=== PATIENT | male | born 1940 | race Caucasian/White ===

== ENCOUNTER 2020-02-23 11:44 | Inpatient (IN) ==
[2020-02-23 13:29] LABS: Albumin 3.9 g/dL (3.2-5.2); Albumin/Globulin Ratio 1.1 (1-3); BUN/Creatinine Ratio 22.3 (8-20); C Reactive Protein 54.96 mg/L (<8.01); Calcium 9.5 mg/dL (8.6-10.3); EGFR African American 44.3 (>60); EGFR Non-African American 36.6 (>60); Globulin 3.6 g/dL (2-4); Potassium 4.9 mmol/L (3.5-5.0); Total Bilirubin 0.3 mg/dL (0.2-1.0); Total Protein 7.5 g/dL (6.4-8.9)
[2020-02-23 13:38] LABS: ABS Lymphocytes 0.9 10^3/ul (1.0-4.8); ABS Monocytes 1.1 10^3/ul (0-0.8); Eosinophil % 0.5 %; Hematocrit 33 % (42-52); Hemoglobin 10.7 g/dL (14.0-18.0); Mean Corpuscular HGB Conc 33 g/dL (31-36); Mean Corpuscular Hemoglobin 25 pg (27-31); Mean Corpuscular Volume 76 fL (80-94); Mean Platelet Volume 7.4 fL (7.4-10.4); Nucleated Red Blood Cells % 0.1; Platelet Count 341 10^3/uL (150-450); Red Blood Count 4.28 10^6 /uL (4.18-5.48); Red Cell Distribution Width 19 % (10-15); White Blood Count 8.8 10^3/uL (3.5-10.8)
[2020-02-23] MEDS ORDERED: Iodixanol (CONTRAST) 320 MG/ML 100 ML SDV IV ONE (14:08)
[2020-02-23] MEDS ORDERED: Morphine 4 MG/ML VIAL (1 ml) IV ONE (14:42)
[2020-02-23] MEDS ORDERED: Ondansetron 4 mg VIAL 2 MG/ML 2 ml VIAL IV ONE (14:42)
[2020-02-23] MEDS ORDERED: NS 0.9% 1000 ml BAG 1,000 ML IV ONE (14:42)
[2020-02-23] MEDS ORDERED: NS 0.9% 1000 ml BAG 1,000 ML IV SCH ×2 (15:45→16:45)
[2020-02-23] MEDS ORDERED: Ondansetron 4 mg VIAL 2 MG/ML 2 ml VIAL IV PRN (16:39)
[2020-02-23] MEDS ORDERED: Dextrose 50% Syringe 50 ml 25 GM/50 ML SYRINGE IV PUSH PRN (17:17)
[2020-02-23] MEDS: Insulin LISPRO 100 units/ml(*) SUBCUT SCH (18:29)
[2020-02-23] MEDS: Enoxaparin 40 MG/0.4 ML SYR(*) SUBCUT SCH (19:11)
[2020-02-23] MEDS: CEFAZOLIN 1 GM IVPB SCH (19:31)
[2020-02-23] MEDS ORDERED: ceFAZolin 2 GM PREMIX in ORs 2 GM/50 ML BAG IVPB SCH (21:00)
[2020-02-23] MEDS ORDERED: D5W 1/2 NS 1000 ml BAG 1,000 ML IV SCH (21:00)
[2020-02-23 21:20] LABS: Urine Appearance Clear; Urine Bilirubin Negative (Negative); Urine Blood Negative (Negative); Urine Color Straw; Urine Glucose Negative (Negative); Urine Ketones Negative (Negative); Urine Nitrite Negative (Negative); Urine Protein Negative (Negative); Urine Specific Gravity 1.025 (1.010-1.030); Urine Urobilinogen Negative (Negative)
[2020-02-24] MEDS: Insulin LISPRO 100 units/ml(*) SUBCUT SCH ×4 (02:14→17:04)
[2020-02-24] MEDS: CEFAZOLIN 1 GM IVPB SCH ×2 (06:16→18:57)
[2020-02-24 06:49] LABS: Anion Gap 6 mmol/L (2-11); Blood Urea Nitrogen 29 mg/dL (6-24); CO2 Carbon Dioxide 25 mmol/L (22-32); Chloride 105 mmol/L (101-111); EGFR African American 56.5 (>60); EGFR Non-African American 46.7 (>60); Glucose 104 mg/dL (70-100); Potassium 3.8 mmol/L (3.5-5.0); Sodium 136 mmol/L (135-145)
[2020-02-24] MEDS ORDERED: Benzocaine/Menthol LOZ MT PRN (11:37)
[2020-02-24] MEDS ORDERED: fentaNYL 100 mcg/2 ml 50 MCG/ML VIAL ONE (14:01)
[2020-02-24] MEDS ORDERED: Midazolam 10 mg/10 ml VIAL 1 mg/ml 10 ml VIAL (10 mg) ONE (14:01)
[2020-02-24] MEDS: Enoxaparin 40 MG/0.4 ML SYR(*) SUBCUT SCH (18:57)
[2020-02-25] MEDS: CEFAZOLIN 1 GM IVPB SCH ×2 (06:01→18:00)
[2020-02-25] MEDS: Insulin LISPRO 100 units/ml(*) SUBCUT SCH ×3 (07:51→16:22)
[2020-02-25 12:06] LABS: % Iron Saturation 6 % (15-55); Iron 24 ug/dL (50-212); Total Iron Binding Capacity 413 mcg/dL (250-450); Transferrin 295 mg/dL (203-362)
[2020-02-25] MEDS: Pantoprazole VIAL 40 MG VIAL IV SCH (12:10)
[2020-02-25 12:25] LABS: Corrected Retic Count 1.1 % (0.5-1.5); Hematocrit for Retic CNT 28 % (42-52); Immature Retic Fraction 0.42; RBC Retic Count 3.64 10^6/uL (4.18-5.48)
[2020-02-25] MEDS: Enoxaparin 40 MG/0.4 ML SYR(*) SUBCUT SCH (18:00)
[2020-02-26] MEDS: CEFAZOLIN 1 GM IVPB SCH (06:20)
[2020-02-26] MEDS: Insulin LISPRO 100 units/ml(*) SUBCUT SCH ×2 (07:24→11:43)
[2020-02-26 11:24] VITALS: BP 154/68
[2020-02-26] MEDS: Pantoprazole VIAL 40 MG VIAL IV SCH (11:31)
== END 2020-02-26 14:00 | disposition home or self-care (01) | DRG 381 ==
LOC: ED 11:44 → MED 16:38
PROVIDERS: ADMIT Hospitalist; ATTEND Internal Medicine

== ENCOUNTER 2022-08-11 07:30 | Observation (INO) ==
[~2022-08-11 07:30] MED LIST: Buffered Lidocaine 1% SYRIN 1 ml INTRADERM ONE; HYDROcodone/ACETAMIN 5/325 mg TAB PO PRN; Lactated Ringers 1000 ml BAG 1,000 ML IV SCH; Metoclopramide 5 MG/ML VIAL (10 mg) IV PRN; Naloxone 0.4 mg VIAL 0.4 mg/ml 1 ml VIAL IV PRN; Ondansetron 4 mg VIAL 2 MG/ML 2 ml VIAL IV PRN; fentaNYL 100 mcg/2 ml 50 MCG/ML VIAL IV PRN
[2022-08-11] MEDS ORDERED: ceFAZolin 2 GM PREMIX 2 GM/50 ML BAG ONE (10:23)
[2022-08-11] MEDS ORDERED: Ropivacaine 5 MG/ML 20 ML VIAL 0.5% (100 MG) ONE (12:26)
[2022-08-11] MEDS ORDERED: Lidocaine 2% PF 5 ML VIAL ONE (12:36)
[2022-08-11] MEDS ORDERED: Propofol 10 MG/ML 20 ML BTL ONE (12:36)
[2022-08-11] MEDS ORDERED: Dexamethasone IV 4 MG/ML VIAL 1 ml VIAL ONE (12:36)
[2022-08-11] MEDS ORDERED: Ondansetron 4 mg VIAL 2 MG/ML 2 ml VIAL ONE (12:36)
[2022-08-11] MEDS ORDERED: Rocuronium 50 mg VIAL 10 mg/ml 5 ml VIAL (50 mg) ONE ×2 (12:37→13:29)
[2022-08-11] MEDS ORDERED: fentaNYL 100 mcg/2 ml 50 MCG/ML VIAL ONE (12:37)
[2022-08-11] MEDS ORDERED: Morphine 10 MG/ML VIAL (1 ml) ONE (13:39)
[2022-08-11] MEDS ORDERED: Phenylephrine IV 10 MG/ML 1 ml VIAL ONE (13:48)
[2022-08-11] MEDS ORDERED: Lactulose 30 ml UDC PO PRN (15:15)
[2022-08-11] MEDS ORDERED: Ondansetron ODT 4 mg TAB 4 MG TAB PO PRN (15:15)
[2022-08-11] MEDS ORDERED: Morphine 2 MG/ML SYRINGE IV PRN (15:15)
[2022-08-11] MEDS ORDERED: Magnesium Hydroxide LIQ 30 ML UDC PO PRN (15:15)
[2022-08-11] MEDS ORDERED: Ondansetron 4 mg VIAL 2 MG/ML 2 ml VIAL IV PRN (15:15)
[2022-08-11] MEDS ORDERED: HYDROcodone/ACETAMIN 5/325 mg TAB ONE (15:56)
[2022-08-11] MEDS: Lactated Ringers 1000 ml BAG 1,000 ML IV SCH (17:06)
[2022-08-11] MEDS ORDERED: Dextrose 50% Syringe 50 ml 25 GM/50 ML SYRINGE IV PUSH PRN (18:24)
[2022-08-11] MEDS: ceFAZolin 1 GM ADVAN 1 GM in NS 0.9% 50 ML 50 ML IVPB SCH (21:27)
[2022-08-11] MEDS: Magnesium Hydroxide LIQ 30 ML UDC PO SCH (21:29)
[2022-08-12] MEDS: Lactated Ringers 1000 ml BAG 1,000 ML IV SCH (02:25)
[2022-08-12] MEDS: ceFAZolin 1 GM ADVAN 1 GM in NS 0.9% 50 ML 50 ML IVPB SCH ×2 (05:33→13:20)
[2022-08-12 06:43] LABS: Hematocrit 31 % (42-52); Hemoglobin 10.4 g/dL (14.0-18.0); Mean Platelet Volume 7.2 fL (7.4-10.4); Platelet Count 193 10^3/uL (150-450)
[2022-08-12 07:03] LABS: Calcium 7.9 mg/dL (8.6-10.3); eGFR CKD-EPI 43.5 (>60)
[2022-08-12 07:05] LABS: Potassium 5.2 mmol/L (3.5-5.0)
[2022-08-12] MEDS ORDERED: Vitamin THERAPEUTIC TAB PO SCH (09:00)
[2022-08-12] MEDS: Magnesium Hydroxide LIQ 30 ML UDC PO SCH (09:36)
[2022-08-12 14:02] VITALS: BP 134/65
== END 2022-08-12 14:05 | disposition home or self-care (01) ==
LOC: AA 09:34 → INTOOBSV 09:34 → SSU 16:53
PROVIDERS: ADMIT Orthopaedic Surgery Adult Reconstructive Orthopaedic Surgery; ATTEND Orthopaedic Surgery Adult Reconstructive Orthopaedic Surgery